=== PATIENT | female | born 1980 | race Caucasian/White ===

== ENCOUNTER 2019-03-09 19:20 | Emergency (ER) | payer MEDICARE, MEDICAID ==
[2019-03-09 19:48] VITALS: BP 128/76
--- NOTE | 2019-03-09 19:57 | UC ---
Throat Pain/Nasal Antione HPI - HPI Summary HPI Summary: Starting 1 week ago with allergy symptoms. Now congestion, cough and coughing up green slim. Pt concerned about getting pneumonia. - History of Current Complaint Chief Complaint: UCGeneralIllness Stated Complaint: CONGESTION,COUGH Time Seen by Provider: 03/09/19 19:55 Hx Obtained From: Patient Hx Last Menstrual Period: 03/06/19 Onset/Duration: Sudden Onset, Lasting Days Severity: Mild Pain Intensity: 3 Associated Signs & Symptoms: Positive: Dysphagia, Sinus Discomfort, Nasal Discharge Related History: Seasonal Allergies - Allergies/Home Medications Allergies/Adverse Reactions: Allergies Allergy/AdvReac Type Severity Reaction Status Date / Time Influenza Virus Vaccines Allergy Swelling Verified 03/09/19 19:49 Of Face,Lips,& Throat shellfish derived Allergy Anaphylatic Verified 03/09/19 19:50 Shock Home Medications: Home Medications Eletriptan (NF) [Relpax (Nf)] 20 mg PO QAM PRN 03/09/19 [History Confirmed 03/09] Fluticasone NASAL SPRAY 50MCG* [Flonase NASAL SPRAY 50MCG*] 2 spray BOTH NARES DAILY 03/09/19 [History Confirmed 03/09/19] Ondansetron HCl [Zofran] 8 mg PO Q8HR PRN 03/09/19 [History Confirmed 03/09/19] buPROPion TAB* [Wellbutrin TAB*] 75 mg PO DAILY 03/09/19 [History Confirmed 12/23] PMH/Surg Hx/FS Hx/Imm Hx Previously Healthy: Yes - Surgical History Surgical History: Yes Surgery Procedure, Year, and Place: TUBAL LIGATION 2009 - Family History Known Family History: Positive: Respiratory Disease, Other - Social History Alcohol Use: Rare Substance Use Type: None Smoking Status (MU): Former Smoker Type: Cigarettes Amount Used/How Often: 1/2 ppd Length of Time of Smoking/Using Tobacco: 17 Years Have You Smoked in the Last Year: Yes When Did the Patient Quit Smoking/Using Tobacco: 08/2018 - Immunization History Most Recent Influenza Vaccination: none Review of Systems All Other Systems Reviewed And Are Negative: Yes Physical Exam Triage Information Reviewed: Yes Appearance: Well-Nourished, Ill-Appearing, Pain Distress Vital Signs: Initial Vital Signs Temp 97.5 F 03/09/19 19:44 Pulse 86 03/09/19 19:44 Resp 16 03/09/19 19:44 BP 128/76 03/09/19 19:44 Pulse Ox 100 03/09/19 19:44 Vital Signs Reviewed: Yes ENT: Positive: Pharyngeal erythema, Nasal congestion, TM bulging, TM dull, TM red - left ear, Dental tenderness, Sinus tenderness Dental Exam: Normal Neck exam: Normal Respiratory Exam: Normal Respiratory: Positive: Chest non-tender, Lungs clear, Normal breath sounds Cardiovascular Exam: Normal Cardiovascular: Positive: RRR, No Murmur, Pulses Normal Musculoskeletal Exam: Normal Neurological Exam: Normal Psychological Exam: Normal Skin Exam: Normal Throat Pain/Nasal Course/Dx - Course Course Of Treatment: hx obtained, exam performed ,meds reviewed, treated for sinusitis - Differential Dx/Diagnosis Differential Diagnosis/HQI/PQRI: Otitis Media, Pharyngitis, Sinusitis, URI Provider Diagnosis: Sinusitis Discharge - Sign-Out/Discharge Documenting (check all that apply): Patient Departure All imaging exams completed and their final reports reviewed: No Studies - Discharge Plan Condition: Stable Disposition: HOME Prescriptions: Amoxicillin PO (*) [Amoxicillin 875 MG (*)] 875 mg PO BID #20 tab Patient Education Materials: Rhinosinusitis (ED) Referrals: Madelin Castro MD [Primary Care Provider] - Additional Instructions: 1. take the medication as prescribed - I changed the antibiotic becasue f medication interactions 2. Continue with the daily zyrtec 3. Increase fluid intake and get plenty of rest. - Billing Disposition and Condition Condition: STABLE Disposition: Home
== END 2019-03-09 20:12 | disposition home or self-care (01) ==
LOC: UCCORT 19:20
DX: J32.9 Chronic sinusitis, unspecified (principal); Z87.891 Personal history of nicotine dependence
CPT/HCPCS: 99212; G0463